=== PATIENT | female | born 1975 | race Asian ===

== ENCOUNTER 2016-10-10 11:34 | Emergency (ER) | payer OTHER, BC ==
[~2016-10-10] VITALS: Ht 167.6 cm; Wt 101.2 kg
[~2016-10-10 11:34] MED LIST: GABA300C2 PO; HYDR5TAB9 PO; [UNRECOGNIZED DRUG - OTHER] PO
[2016-10-10 13:20] VITALS: BP 142/80; TEMP 98
== END 2016-10-10 13:20 | disposition home or self-care (01) ==
LOC: ED 11:34
DX: S16.1XXA Strain of muscle, fascia and tendon at neck level, initial encounter (principal); S39.012A Strain of muscle, fascia and tendon of lower back, initial encounter; V43.52XA Car driver injured in collision with other type car in traffic accident, initial encounter
CPT/HCPCS: 99283

== ENCOUNTER 2016-10-12 12:17 | Outpatient (CLI) | payer OTHER, BC | END 2016-10-12 19:18 | disposition home or self-care (01) | LOC: RAD 12:17 | DX: M54.12 Radiculopathy, cervical region (principal) ==

== ENCOUNTER 2016-12-07 13:57 | Outpatient (CLI) | payer BC | END 2016-12-07 19:16 | disposition home or self-care (01) | LOC: RAD 13:57 | DX: J20.9 Acute bronchitis, unspecified (principal) ==

== ENCOUNTER 2017-01-01 08:00 | Emergency (ER) | payer BC ==
[~2017-01-01] VITALS: Ht 167.6 cm; Wt 101.2 kg
[2017-01-01 08:15] VITALS: BP 143/80; TEMP 98.4
== END 2017-01-01 08:40 | disposition home or self-care (01) ==
LOC: ED 08:00
DX: R51 Headache (principal); J32.9 Chronic sinusitis, unspecified
CPT/HCPCS: 99281

== ENCOUNTER 2017-01-16 14:01 | Outpatient (CLI) | payer OTHER, BC | END 2017-01-16 15:05 | disposition home or self-care (01) | LOC: MRI 14:01 | DX: M54.5 Low back pain (principal) ==

== ENCOUNTER 2018-02-26 12:12 | Emergency (ER) | payer BC ==
[~2018-02-26] VITALS: Ht 167.6 cm; Wt 102.1 kg
[2018-02-26 14:42] LABS: PLATELET COUNT 214 K/uL (152-353)
[2018-02-26 14:50] LABS: POTASSIUM 3.5 mmol/L (3.6-5.2)
[2018-02-26 16:06] VITALS: BP 120/74; TEMP 98.7
== END 2018-02-26 16:13 | disposition home or self-care (01) ==
LOC: ED 12:12
PROVIDERS: Family Medicine
DX: J01.90 Acute sinusitis, unspecified (principal); R51 Headache
CPT/HCPCS: 36415; 80053; 85027; 99283

== ENCOUNTER 2018-04-23 13:46 | Outpatient (CLI) | payer BC | END 2018-04-23 19:51 | disposition home or self-care (01) | LOC: CT 13:46 | DX: J01.91 Acute recurrent sinusitis, unspecified (principal) ==

== ENCOUNTER 2018-06-12 07:06 | Day surgery (SDC) | payer BC ==
[2018-06-12 08:29] LABS: POTASSIUM 3.6 mmol/L (3.6-5.2)
[2018-06-12 08:30] LABS: PLATELET COUNT 248 K/uL (152-353)
== END 2018-06-12 10:02 | disposition home or self-care (01) ==
LOC: OR 07:06
PROVIDERS: Student in an Organized Health Care Education/Training Program
PROC: 0DJ08ZZ Inspection of Upper Intestinal Tract, Via Natural or Artificial Opening Endoscopic (ICD-10-PCS; principal; 2018-06-12)
DX: K44.9 Diaphragmatic hernia without obstruction or gangrene (principal); R10.13 Epigastric pain; K21.9 Gastro-esophageal reflux disease without esophagitis
CPT/HCPCS: 80053; 85027; J2001; J2250; J2704

== ENCOUNTER 2018-06-19 07:02 | Day surgery (SDC) | payer BC | END 2018-06-19 10:25 | disposition home or self-care (01) | LOC: OR 07:02 | PROC: 0DJD8ZZ Inspection of Lower Intestinal Tract, Via Natural or Artificial Opening Endoscopic (ICD-10-PCS; principal; 2018-06-19) | DX: K64.8 Other hemorrhoids (principal); Z12.11 Encounter for screening for malignant neoplasm of colon; R10.84 Generalized abdominal pain ==

== ENCOUNTER 2018-08-15 17:51 | Emergency (ER) | payer BC ==
[~2018-08-15] VITALS: Ht 261.6 cm; Wt 100.2 kg
[2018-08-15 18:05] VITALS: TEMP 98.6
[2018-08-15 18:28] VITALS: BP 130/74
== END 2018-08-15 18:28 | disposition home or self-care (01) ==
LOC: ED 17:51
DX: H92.02 Otalgia, left ear (principal)
CPT/HCPCS: 99281

== ENCOUNTER 2019-01-08 08:32 | Outpatient (CLI) | payer BC | END 2019-01-08 19:15 | disposition home or self-care (01) | LOC: RESP 08:32 | DX: G56.03 Carpal tunnel syndrome, bilateral upper limbs (principal); G56.21 Lesion of ulnar nerve, right upper limb | CPT/HCPCS: 95861; 95911 ==

== ENCOUNTER 2020-06-12 08:01 | Outpatient (CLI) | payer BC | END 2020-06-12 19:05 | disposition home or self-care (01) | LOC: MAMMO 08:01 | DX: Z12.31 Encounter for screening mammogram for malignant neoplasm of breast (principal) ==

== ENCOUNTER 2020-08-26 18:32 | Observation (INO) | payer BC ==
[~2020-08-26] VITALS: Ht 167.6 cm; Wt 99.8 kg
[2020-08-26 19:36] LABS: PLATELET COUNT 317 K/uL (152-353)
[2020-08-26 19:57] LABS: POTASSIUM 3.7 mmol/L (3.6-5.2)
[2020-08-27 01:59] VITALS: BP 107/53; TEMP 98.4; Ht 167.6 cm; Wt 99.8 kg
[2020-08-27 04:00] VITALS: BP 107/58; TEMP 98.7
[2020-08-27 08:00] VITALS: BP 112/52; TEMP 98.3
[2020-08-27 08:30] LABS: PLATELET COUNT 283 K/uL (152-353)
[2020-08-27 08:46] LABS: POTASSIUM 4.2 mmol/L (3.6-5.2)
[2020-08-27 12:00] VITALS: BP 95/54; TEMP 97.8
== END 2020-08-27 13:00 | disposition home or self-care (01) ==
LOC: MED/SURG 18:32
PROVIDERS: ADMIT Family Medicine; ATTEND Family Medicine
DX: U07.1 COVID-19 (principal); J18.8 Other pneumonia, unspecified organism; I10 Essential (primary) hypertension; K21.9 Gastro-esophageal reflux disease without esophagitis
CPT/HCPCS: 36415; 80053; 82728; 83735; 84100; 85027; 85379; 86140; 87040; 93005; 94760; 96365; 96367; 96372; 96375; 99220; G0378; G0379; J0456; J0696; J1650

== ENCOUNTER 2020-11-11 10:37 | Outpatient (CLI) | payer BC, OTHER | END 2020-11-11 20:11 | disposition home or self-care (01) | LOC: INF 10:37 | PROVIDERS: ATTEND Internal Medicine | DX: Z23 Encounter for immunization (principal) ==

== ENCOUNTER 2020-12-03 08:20 | Outpatient (CLI) | payer BC, OTHER | END 2020-12-03 19:21 | disposition home or self-care (01) | LOC: INF 08:20 | PROVIDERS: ATTEND Internal Medicine | DX: Z23 Encounter for immunization (principal) ==

== ENCOUNTER 2021-02-19 07:41 | Emergency (ER) | payer BC ==
[~2021-02-19] VITALS: Ht 167.6 cm; Wt 99.8 kg
[2021-02-19 07:53] VITALS: BP 136/76; TEMP 97.4
[2021-02-19 08:45] LABS: PLATELET COUNT 194 K/uL (152-353)
[2021-02-19 08:51] LABS: POTASSIUM 3.7 mmol/L (3.6-5.2)
== END 2021-02-19 10:44 | disposition home or self-care (01) ==
LOC: ED 07:41
PROVIDERS: Family Medicine
DX: A08.39 Other viral enteritis (principal); R51.9 Headache, unspecified; Z20.822 Contact with and (suspected) exposure to COVID-19
CPT/HCPCS: 80053; 81000; 85027; 87635; 96360; 96375; 99284; J1885; J2405; U0003

== ENCOUNTER 2021-04-22 09:34 | Outpatient (CLI) | payer BC | END 2021-04-22 20:10 | disposition home or self-care (01) | LOC: US 09:34 | PROVIDERS: ATTEND Nurse Practitioner Family | DX: R35.0 Frequency of micturition (principal) ==

== ENCOUNTER 2021-05-14 16:03 | Outpatient (CLI) | payer BC | END 2021-05-14 19:46 | disposition home or self-care (01) | LOC: RAD 16:03 | PROVIDERS: ATTEND Internal Medicine | DX: M25.561 Pain in right knee (principal); M25.562 Pain in left knee; M54.9 Dorsalgia, unspecified ==

== ENCOUNTER 2021-11-01 08:43 | Emergency (ER) | payer OTHER ==
[~2021-11-01] VITALS: Ht 167.6 cm; Wt 99.8 kg
[2021-11-01 08:49] VITALS: BP 149/74; TEMP 98
== END 2021-11-01 09:59 | disposition home or self-care (01) ==
LOC: ED 08:43
PROC: 2W3SXYZ Immobilization of Right Foot using Other Device (ICD-10-PCS; principal; 2021-11-01)
DX: S96.911A Strain of unspecified muscle and tendon at ankle and foot level, right foot, initial encounter (principal); Y93.01 Activity, walking, marching and hiking; Y93.89 Activity, other specified; Y92.89 Other specified places as the place of occurrence of the external cause
CPT/HCPCS: 99283

== ENCOUNTER 2021-11-08 11:29 | Outpatient (CLI) | payer OTHER | END 2021-11-08 19:11 | disposition home or self-care (01) | LOC: RAD 11:29 | PROVIDERS: ATTEND Nurse Practitioner Family | DX: S93.491D Sprain of other ligament of right ankle, subsequent encounter (principal); Y92.9 Unspecified place or not applicable ==

== ENCOUNTER 2022-02-16 12:19 | Outpatient (CLI) | payer OTHER ==
[2022-02-16 12:33] LABS: PLATELET COUNT 215 K/uL (152-353)
[2022-02-16 12:41] LABS: POTASSIUM 3.5 mmol/L (3.6-5.2); SODIUM 137 mmol/L (136-145)
== END 2022-02-16 18:55 | disposition home or self-care (01) ==
LOC: LABW 12:19
PROVIDERS: ATTEND Nurse Practitioner Family
DX: M54.6 Pain in thoracic spine (principal)
CPT/HCPCS: 36415; 80053; 82550; 82553; 84484; 85027; 93005

== ENCOUNTER 2022-03-03 16:32 | Outpatient (CLI) | payer OTHER ==
[2022-03-03 16:49] LABS: PLATELET COUNT 247 K/uL (152-353)
== END 2022-03-03 22:29 | disposition home or self-care (01) ==
LOC: LABW 16:32
PROVIDERS: ATTEND Nurse Practitioner Family
DX: J01.90 Acute sinusitis, unspecified (principal)
CPT/HCPCS: 36415; 85027; 87502